=== PATIENT | female | born 1995 | race Two or more races ===

== ENCOUNTER 2017-05-04 12:33 | Emergency (ER) | payer BC ==
[~2017-05-04] VITALS: Ht 160 cm; Wt 59.0 kg
--- NOTE | ~2017-05-04 | US61 ---
[facility] A Service of [facility] RADIOLOGY TEXT RESULTS PATIENT: TITUS FONSECA LOCATION: [facility] : [birth year] UNIT #: [id number] AGE: [address]: Ritesh De La Rosa MD SEX: F ORDER DR: [id number] [facility] [address] [place], [place] [address] [id number] E MR#: [id number] Acc #: [id number] NAME: TITUS FONSECA : 1995 SEX: F STUDY DATE/TIME: 05/04/2017 14:31 UNIT: [facility] ROOM: STUDY DESCRIPTION: US /Mat <14Wk / Attending Physician: Ritesh De La Rosa M.D. Ordering Physician: Ritesh De La Rosa M.D. Primary Care Physician: Deep Cordova M.D. MEDICAL IMAGING REPORT This report is preliminary unless electronic signature is present EXAM Post-trimester pelvic ultrasound. INDICATIONS patient. Lower abdominal pelvic cramping for the past 2 weeks. Quantitative beta-hCG level 22,576. PROCEDURE Chen-scale and Doppler imaging of the pelvis via transabdominal and transvaginal approach. COMPARISON None. FINDINGS Uterus is anteverted measures 6.8 x 3.9 x 4.8 cm. Gestational sac in the endometrial cavity at the fundus measures 1.2 x 1.8 x 1.3 cm. There is a normal-appearing yolk sac. There is a pole that measures 4 mm consistent with a gestational age of 6 weeks and 0 days. Heart rate 113 beats per minute. The left ovary contains a corpus luteum. Right ovary is not seen. No free pelvic fluid. IMPRESSION Single intrauterine , gestational age 6 weeks, 0 days. Heart rate of 113 beats per minute. No definite complication. Recommend continued clinical follow up. Repeat pelvic ultrasound can be performed as deemed clinically appropriate. Dictated by... Iain Pires M.D. THIS IS AN ELECTRONICALLY VERIFIED REPORT [facility] A Service of [facility] RADIOLOGY TEXT RESULTS PATIENT: TITUS FONSECA LOCATION: [facility] #: [id number] : [birth year] UNIT #: [id number] AGE: [address]: Ritesh De La Rosa MD SEX: F ORDER DR: Iain Pires M.D. at 05/05/2017 3:29 PM BERNARDO/wilver TD: 05/04/2017 17:45 JOB #: [id number] MEDICAL IMAGING REPORT Page 1 of 1 COPY
[2017-05-04 13:47] LABS: BASOPHIL% 0.3 % (0-2.5); EOSINOPHIL% 0.2 % (0.0-7.0); HEMATOCRIT 37.3 % (35.0-45.0); HEMOGLOBIN 12.8 gm/dL (12.0-16.0); LYMPHOCYTE# 1.9 X10e3 (1.0-3.5); LYMPHOCYTE% 16.6 % (17.0-45.0); MEAN CELL VOLUME 92.1 FL (83-96); MEAN CORPUSCULAR HEMOGLOBIN 31.5 PG (28-34); MEAN CORPUSCULAR HGB CONC 34.2 g/dL (30-36); MEAN PLATELET VOLUME 6.6 FL (6.5-11.5); MONOCYTE# 0.7 X10e3 (0-1.0); NEUTROPHIL% 76.9 % (40-75); PLATELET COUNT 407 X10e3 (140-420); RED BLOOD COUNT 4.05 X10e (3.90-5.30); RED CELL DISTRIBUTION WIDTH 13.4 % (11.0-15.5); WHITE BLOOD COUNT 11.6 X10e3 (4.0-10.5)
[2017-05-04 13:49] LABS: DIFF IND NO
[2017-05-04 14:06] LABS: ALBUMIN SERUM 4.2 g/dL (3.5-5.0); CALCIUM SERUM 9.2 mg/dL (8.4-10.2); CREATININE SERUM 0.6 mg/dL (0.6-1.4); GLOM FILT RATE Estimated 130.3 mL/min (>60); POTASSIUM 3.4 mmol/L (3.5-5.1); PROTEIN TOTAL SERUM 7.1 g/dL (6.0-8.3)
[2017-05-08 22:35] LABS: CHLAMYDIA TRACH Detected (Not Detected); N GONOR Not Detected (Not Detected)
== END 2017-05-04 15:37 | disposition home or self-care (01) ==
LOC: CED 12:33
PROVIDERS: Emergency Medicine
DX: O20.9 Hemorrhage in early pregnancy, unspecified (principal); O23.591 Infection of other part of genital tract in pregnancy, first trimester; N76.0 Acute vaginitis; O21.9 Vomiting of pregnancy, unspecified; O99.89 Other specified diseases and conditions complicating pregnancy, childbirth and the puerperium; R11.0 Nausea; O99.331 Smoking (tobacco) complicating pregnancy, first trimester; F17.200 Nicotine dependence, unspecified, uncomplicated; Z98.890 Other specified postprocedural states; Z91.018 Allergy to other foods; Z3A.01 Less than 8 weeks gestation of pregnancy
CPT/HCPCS: 36415; 76801; 80053; 83690; 84702; 85025; 86900; 86901; 87491; 87591; 87808; 87905; 96360; 99284